=== PATIENT | male | born 1985 ===

== ENCOUNTER 2016-08-18 19:56 | Inpatient (IN) | payer MEDICAID, OTHER ==
[2016-08-18 19:56] VITALS: BMI 25.8
--- NOTE | 2016-08-18 21:03 | ED PDOC ---
HPI: Psych/Substance Abuse Time Seen by Provider: 08/18/16 20:32 Chief Complaint (Nursing): Psychiatric Evaluation Chief Complaint (Provider): crisis eval History Per: Patient History/Exam Limitations: no limitations Onset/Duration Of Symptoms: Days Current Symptoms Are (Timing): Still Present Additional History Per: Patient Additional Complaint(s): 31 y/o male history of bipolar presents with suicidal ideations. Patient states he got in to argument with friend, he states he then tried multiple times to kill himself. He notes trying suffocating himself, taking 6 Xanax pills at 17:00, injecting heroin, and laying in front of the street all throughout the day. Patient admits to being noncompliant with psych medications. Patient denies homicidal ideations, hallucinations, alcohol use, acute medical complaints. Past Medical History Reviewed: Historical Data, Nursing Documentation, Vital Signs Vital Signs: Last Vital Signs Temp 97.6 F 08/18/16 20:05 Pulse 88 08/18/16 20:05 Resp 18 08/18/16 20:05 BP 142/96 H 08/18/16 20:05 Pulse Ox 99 08/18/16 20:05 - Medical History PMH: Anxiety, Depression, HTN, Hypercholesterolemia Denies: Diabetes, Hepatitis, HIV, Chronic Kidney Disease, Seizures, Sexually Transmitted Disease - Surgical History Surgical History: No Surg Hx - Family History Family History: States: Unknown Family Hx - Living Arrangements Living Arrangements: Alone - Social History Drugs: Opiates, Prescription medications - Immunization History Hx Tetanus Toxoid Vaccination: No Hx Influenza Vaccination: No Hx Pneumococcal Vaccination: No - Home Medications Home Medications: Ambulatory Orders Medication Instructions Recorded Aspirin [Ecotrin] 81 mg PO DAILY 05/30/16 Atorvastatin [Lipitor] 20 mg PO DAILY 05/30/16 Cholecalciferol (Vitamin D3) 1,000 unit PO DAILY 05/30/16 [Vitamin D3] Metoprolol Tartrate [Lopressor] 25 mg PO BID 05/30/16 PARoxetine [Paxil] 20 mg PO DAILY 05/30/16 busPIRone [Buspar] 7.5 mg PO BID 05/30/16 Aspirin [Ecotrin] 81 mg PO DAILY #30 tabec 06/12/16 Escitalopram [Lexapro] 20 mg PO DAILY #30 tab 06/12/16 Gabapentin [Neurontin] 400 mg PO TID #90 cap 06/12/16 Metoprolol Tartrate [Lopressor] 25 mg PO BID #60 tab 06/12/16 QUEtiapine [Seroquel] 100 mg PO DAILY #30 tab 06/12/16 QUEtiapine [Seroquel] 300 mg PO HS #30 tab 06/12/16 Rosuvastatin Calcium [Crestor] 10 mg PO HS #30 tab 06/12/16 traZODone [Desyrel] 100 mg PO HS #30 tab 06/12/16 Aspirin [Ecotrin] 81 mg PO DAILY #30 tabec 08/11/16 Divalproex [Depakote DR] 500 mg PO BID #60 tcp 08/11/16 Ergocalciferol [Drisdol 50,000 1 cap PO QWK #4 cap 08/11/16 Intl Units Cap] Gabapentin [Neurontin] 300 mg PO BID #60 cap 08/11/16 Metoprolol Tartrate [Lopressor] 25 mg PO BID #60 tab 08/11/16 PARoxetine [Paxil] 20 mg PO QAM #30 tab 08/11/16 QUEtiapine [SEROquel] 200 mg PO HS #30 tab 08/11/16 - Allergies Allergies/Adverse Reactions: Allergies Allergy/AdvReac Type Severity Reaction Status Date / Time No Known Allergies Allergy Verified 08/04/16 14:30 Review of Systems ROS Statement: Except As Marked, All Systems Reviewed And Found Negative Psych: Positive for: Depression, Suicidal ideation Physical Exam - Reviewed Nursing Documentation Reviewed: Yes Vital Signs Reviewed: Yes - Physical Exam Appears: Positive for: Well, Non-toxic, Uncomfortable (crying) Head Exam: Positive for: ATRAUMATIC, NORMAL INSPECTION, NORMOCEPHALIC Skin: Positive for: Normal Color Eye Exam: Positive for: Normal appearance ENT: Positive for: Normal ENT Inspection Cardiovascular/Chest: Positive for: Regular Rate, Rhythm Respiratory: Positive for: Normal Breath Sounds Gastrointestinal/Abdominal: Positive for: Normal Exam Back: Positive for: Normal Inspection Extremity: Positive for: Normal ROM, Other (track pittman b/l antecubial fossa) Neurologic/Psych: Positive for: Alert, Oriented - Laboratory Results Result Diagrams: 08/18/16 21:35 08/18/16 21:35 - ECG ECG: Positive for: Viewed By Me (reviewed by ED attending) ECG Rhythm: Positive for: Sinus Rhythm O2 Sat by Pulse Oximetry: 99 - Progress ED Course And Treament: labs, urine, ekg, 1:1, crisis eval Poison control contacted by RN; recommends supportive care 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 Ortiz Posion control follow up call made by RN; poison recommends no further intervention at this time. Patient medically stable for psych admission. Disposition - Clinical Impression Clinical Impression: Depression - Patient ED Disposition Is Patient to be Admitted: Yes - Disposition Disposition Time: 03:51 Condition: STABLE
[2016-08-18 22:06] LABS: BASO # 0.1 K/uL (0.0-0.2); BASO % 0.8 % (0.0-2.0); EOS # 0.3 K/uL (0.0-0.7); EOS % 4.3 % (0.0-4.0); HEMATOCRIT 40.7 % (35.0-51.0); LYMPH # 1.5 K/uL (1.0-4.3); MEAN CELL VOLUME 92.4 fl (80.0-94.0); MEAN CORPUSCULAR HEMOGLOBIN 30.6 pg (27.0-31.0); MEAN CORPUSCULAR HGB CONC 33.1 g/dL (33.0-37.0); MEAN PLATELET VOLUME 10.1 fl (7.2-11.7); MONO % 13.7 % (0.0-10.0); NEUT # 4.2 K/uL (1.8-7.0); NEUT % 59.2 % (50.0-75.0); NRBC % 0.1 % (0.0-0.0); RED CELL DISTRIBUTION WIDTH 12.9 % (11.5-14.5)
[2016-08-18 22:20] LABS: ALB/GLOB RATIO 1.4 (1.0-2.1); ALCOHOL SERUM < 10 mg/dl (0-10); ALKALINE PHOSPHATASE 68 U/L (38-126); ALT/SGPT 14 U/L (21-72); AST/SGOT 25 U/L (17-59); BILIRUBIN,TOTAL 0.5 mg/dl (0.2-1.3); BLOOD UREA NITROGEN 11 mg/dl (9-20); CALCIUM 9.7 mg/dL (8.4-10.2); CARBON DIOXIDE 29 mmol/L (22-30); CHLORIDE 99 mmol/L (98-107); GFR AFRICAN-AMERICAN > 60; GLUCOSE,RANDOM 92 mg/dL (75-110); POTASSIUM 3.9 MMOL/L (3.6-5.0); SODIUM 142 mmol/l (132-148); TOTAL PROTEIN 7.5 G/DL (6.3-8.2)
[2016-08-19 02:46] LABS: URINE BILIRUBIN NEGATIVE (NEGATIVE); URINE COLOR YELLOW (YELLOW); URINE GLUCOSE (UA) NEGATIVE (Normal); URINE KETONE TRACE mg/dL (NEGATIVE)
[2016-08-19 02:47] LABS: URINE BLOOD NEGATIVE (NEGATIVE); URINE PROTEIN NEGATIVE (NEGATIVE); URINE UROBILINOGEN 0.2 mg/dL (0.2-1.0)
[2016-08-19 02:48] LABS: RBC URINE 3 /hpf (0-3); URINE LEUKOCYTE ESTERASE NEGATIVE Leu/uL (Negative); WBC URINE 1 /hpf (0-5)
[2016-08-19] MEDS ORDERED: Alum-Mag Hydrox-Simethicone Susp (30 mL) PO PRN (06:34)
[2016-08-19] MEDS ORDERED: Magnesium Hydroxide Susp 30 ml UD PO PRN (06:34)
[2016-08-19] MEDS ORDERED: DiphenhydrAMINE 50 mg/ml Inj IM PRN (06:34)
[2016-08-19 07:17] LABS: T4 7.86 ug/dl (5.5-11.0)
[2016-08-19 07:31] LABS: THYROID STIMULATING HORMONE 1.06 mIU/ML (0.46-4.68)
[2016-08-19] MEDS: Multivitamin With Minerals Tab PO SCH (10:00)
--- NOTE | 2016-08-19 10:30 | PCM.PSYCH ---
Initial Psychiatric Evaluation - Initial Psychiatric Evaluation Type of Admission: Voluntary Legal Status: Capacity Chief Complaint (in patient's own words): i feel terrible Patient's Reaction to Hospitalization: cooperative History of Present Illness and Precipitating Events: 31 yo male, history of 2 recent admissions to [facility] detox. he apparently was laying in the middle of the road with a bag over his head and claiming he wanted to . he states he has been using 20-30 bags of heroin iv daily. he states he has cramping, diarrhea, body aches, etc. he denies wanting to kill himself now. he is nodding off sleeping while stating he feels uncomfortable. by review of chart pt was at [facility] from 05/30/16 to 06/12/16- he was detoxed with methadone and placed on seroquel, and neurontin. the dc summary indicates pt was sent to [facility] for rehab. from 08/06-08/11 he was also in [facility]. he was placed on depakote and paxil and apparently did well and was discharged. pt apparently in homeless. from chart he has a daughter who lives with the mother in [place]. per chart he is from [place], [place]. Current Medications: Active Medications Generic Name Dose Route Start Last Admin Trade Name Freq PRN Reason Stop Dose Admin Acetaminophen 650 mg 08/19/16 06:34 Tylenol 325mg Tab PO Q4 PRN pain level 1 to 7 Al Hydrox/Mg Hydrox/Simethicone 30 ml 08/19/16 06:34 Maalox Plus 30 Ml PO Q4 PRN Dyspepsia Aspirin 81 mg 08/20/16 09:00 Ecotrin PO DAILY GET Clonidine HCl 0.1 mg 08/19/16 09:00 08/19/16 08:53 Catapres PO 0.1 mg Q8@0100,0900,1700 GET Administration Cyclobenzaprine HCl 10 mg 08/19/16 10:09 Flexeril PO TID PRN Muscle spasm Diphenhydramine HCl 50 mg 08/19/16 06:34 Benadryl PO Q6 PRN Extrapyramidal Symptoms Diphenhydramine HCl 50 mg 08/19/16 06:34 Benadryl IM Q6 PRN Extrapyramidal S/S Unable PO Diphenhydramine HCl 50 mg 08/19/16 06:37 Benadryl PO HS PRN Sleep Divalproex Sodium 500 mg 08/19/16 17:00 Depiveth Quispe(*Bid*) PO BID GET Haloperidol 5 mg 08/19/16 06:34 Haldol PO Q4 PRN Agitation Haloperidol Lactate 5 mg 08/19/16 06:34 Haldol IM Q4 PRN Agitation, Unable to Take PO Ibuprofen 800 mg 08/19/16 06:39 Motrin Tab PO Q8 PRN pain level 8 to 10 Loperamide HCl 2 mg 08/19/16 10:10 Imodium PO QID PRN Loose stools Lorazepam 2 mg 08/19/16 06:34 08/19/16 08:53 Ativan PO 2 mg Q4 PRN Administration Anxiety/Agitation Lorazepam 2 mg 08/19/16 06:34 Ativan IM Q4 PRN Anxiety/Agitation,Unable PO Magnesium Hydroxide 30 ml 08/19/16 06:34 Milk Of Magnesia PO HS PRN Constipation Multivitamins/Minerals 1 tab 08/19/16 09:00 Therapeutic-M Tab PO DAILY [facility] Paroxetine HCl 20 mg 08/20/16 09:00 Paxil PO QAM [facility] Past Psychiatric History - Past Psychiatric History Previous Treatment History: Inpatient Prior Professional Help: as per above History of Abuse: pt does not answer History of ETOH/Drug Use: using 20-30 bags a day of heroin. using methdone he buys from clinic patients, states he used xanax he bought from street- uds negative for benzos. denies using cocaine, but uds is positive for cocaine. states he drinks alcohol sometimes, but bal is negative. History of Family Illness: unknown Pertinent Medical Hx (Current Medical&Sleep Prob, Allergies): Allergies Allergy/AdvReac Type Severity Reaction Status Date / Time No Known Allergies Allergy Verified 08/04/16 14:30 Aspirin [Ecotrin] 81 mg PO DAILY 05/30/16 Metoprolol Tartrate [Lopressor] 25 mg PO BID 05/30/16 Divalproex [Depakote DR] 500 mg PO BID #60 tcp 08/11/16 Ergocalciferol [Drisdol 50,000 Intl Units Cap] 1 cap PO QWK #4 cap 08/11/16 PARoxetine [Paxil] 20 mg PO QAM #30 tab 08/11/16 PARoxetine [Paxil] 20 mg PO DAILY 08/19/16 apparently had MIs in the past. ? taking asa and a beta calderon? Review of Systems - Psychiatric Psychiatric: As Per HPI Mental Status Examination - Personal Presentation Personal Presentation: Looks stated age Additional comments: unkempt, won't open eyes - Affect Affect: Blunted - Motor Activity Motor Activity: Calm - Reliability in Providing Information Reliability in Providing Information: Poor, due to altered mood, Other ( somnolent) - Speech Speech: Other (vague) - Mood Mood: Depressed, Anxious - Formal Thought Process Formal Thought Process: No Impairment - Obsessions/Compulsions Obsessions: No Compulsions: No - Cognitive Functions Orientation: Person, Situation Sensorium: Drowsy Attention/Concentration: Easily distracted Abstract Thinking: [place] Estimate of Intelligence: Average Judgement: Intact, as evidence by: Insight regarding need for hospitalization Memory: Recent intact, as evidence by: Ability to recall events of the day, Remote intact, as evidenced by: Abilit to recall sig. life events - Risk Risk: Suicidal (history of recent threats. states he feel safe here. ), Withdrawal - Strength & Assets Inventory Strength & Assets Inventory: Life experience DSM 5 DX - DSM 5 DSM 5 Diagnosis: opioid dependence cocaine abuse bipolar disorder, depressed - Recommended/Plan of Treatment Treatment Recommendations and Plan of Treatment: admit to [facility] for safety and observation gather collateral information provide supportive therapy adjust medications- restart home meds. prn meds for opioid withdrawal hospitalist consult- pt s/p mi disposition planning- refer to inpt rehab Projected ELOS: 3-5 days Prognosis: fair - Smoking Cessation Smoking Cessation Initiated: No Reason for not providing: will not quantify cigarette use
[2016-08-19] MEDS: Divalproex 500 mg DR(BID formulation) PO SCH (16:13)
--- NOTE | 2016-08-19 16:53 | CP.PCM.CON ---
History of Present Illness - History of Present Illness History of Present Illness: 31 yo male with history of Heroin addiction admitted to psyche unit because of suicidal ideation. Pt also admitted going into withdrawal complaining of body aches, abdominal cramps and diarrhea. Review of Systems - Review of Systems All systems: reviewed and no additional remarkable complaints except (aside from those mentioned above, 12 point system review were negative by me) Past Patient History - Past Social History Drugs: Opiates, Prescription medications - CARDIAC Hx Cardiac Disorders: (HTN) - PULMONARY Hx Tuberculosis: No - NEUROLOGICAL Hx Seizures: No - HEENT Hx HEENT Problems: No - RENAL Hx Chronic Kidney Disease: No - ENDOCRINE/METABOLIC Hx Endocrine Disorders: No - HEMATOLOGICAL/ONCOLOGICAL Hx Human Immunodeficiency Virus (HIV): No - INTEGUMENTARY Hx Dermatological Problems: No - MUSCULOSKELETAL/RHEUMATOLOGICAL Hx Musculoskeletal Disorders: No - GASTROINTESTINAL Hx Gastrointestinal Disorders: No - GENITOURINARY/GYNECOLOGICAL Hx Sexually Transmitted Disorders: No - PSYCHIATRIC Hx Anxiety: Yes Hx Depression: Yes - SURGICAL HISTORY Hx Surgeries: No - ANESTHESIA Hx Anesthesia: No Meds Allergies/Adverse Reactions: Allergies Allergy/AdvReac Type Severity Reaction Status Date / Time No Known Allergies Allergy Verified 08/04/16 14:30 - Medications Medications: Current Medications Acetaminophen (Tylenol 325mg Tab) 650 mg PO Q4 PRN PRN Reason: pain level 1 to 7 Al Hydrox/Mg Hydrox/Simethicone (Maalox Plus 30 Ml) 30 ml PO Q4 PRN PRN Reason: Dyspepsia Aspirin (Ecotrin) 81 mg PO DAILY [facility] Clonidine HCl (Catapres) 0.1 mg PO Q8@0100,0900,1700 [facility] Last Admin: 08/19/16 16:14 Dose: 0.1 mg Cyclobenzaprine HCl (Flexeril) 10 mg PO TID PRN PRN Reason: Muscle spasm Diphenhydramine HCl (Benadryl) 50 mg PO Q6 PRN PRN Reason: Extrapyramidal Symptoms Last Admin: 08/19/16 16:14 Dose: 50 mg Diphenhydramine HCl (Benadryl) 50 mg IM Q6 PRN PRN Reason: Extrapyramidal S/S Unable PO Diphenhydramine HCl (Benadryl) 50 mg PO HS PRN PRN Reason: Sleep Divalproex Sodium (Depakote Dr(*Bid*)) 500 mg PO BID [facility] Last Admin: 08/19/16 16:13 Dose: 500 mg Haloperidol (Haldol) 5 mg PO Q4 PRN PRN Reason: Agitation Haloperidol Lactate (Haldol) 5 mg IM Q4 PRN PRN Reason: Agitation, Unable to Take PO Ibuprofen (Motrin Tab) 800 mg PO Q8 PRN PRN Reason: pain level 8 to 10 Loperamide HCl (Imodium) 2 mg PO QID PRN PRN Reason: Loose stools Last Admin: 08/19/16 16:14 Dose: 2 mg Lorazepam (Ativan) 2 mg PO Q4 PRN PRN Reason: Anxiety/Agitation Last Admin: 08/19/16 08:53 Dose: 2 mg Lorazepam (Ativan) 2 mg IM Q4 PRN PRN Reason: Anxiety/Agitation,Unable PO Magnesium Hydroxide (Milk Of Magnesia) 30 ml PO HS PRN PRN Reason: Constipation Multivitamins/Minerals (Therapeutic-M Tab) 1 tab PO DAILY [facility] Last Admin: 08/19/16 10:00 Dose: 1 tab Paroxetine HCl (Paxil) 20 mg PO QAM [facility] Physical Exam - Constitutional Appears: Agitated - Head Exam Head Exam: ATRAUMATIC - Eye Exam Eye Exam: absent: Scleral icterus - ENT Exam ENT Exam: Mucous Membranes Moist - Neck Exam Neck exam: Negative for: Meningismus - Respiratory Exam Respiratory Exam: absent: Rhonchi, Wheezes, Respiratory Distress - Cardiovascular Exam Cardiovascular Exam: REGULAR RHYTHM, +S1, +S2 - GI/Abdominal Exam GI & Abdominal Exam: Soft. absent: Tenderness - Rectal Exam Rectal Exam: Deferred - Neurological Exam Neurological exam: Alert, Oriented x3 - Psychiatric Exam Psychiatric exam: Agitated - Skin Skin Exam: Dry, Intact Results - Vital Signs Recent Vital Signs: Last Vital Signs Temp 97.7 F 08/19/16 09:00 Pulse 106 H 08/19/16 16:14 Resp 18 08/19/16 09:00 BP 114/73 08/19/16 16:14 Pulse Ox 100 08/19/16 06:15 - Labs Result Diagrams: 08/18/16 21:35 08/18/16 21:35 Labs: Laboratory Results - last 24 hr 08/19/16 08/19/16 06:52 07:00 Hemoglobin A1c 5.7 Triglycerides 60 Cholesterol 135 LDL Cholesterol Direct 74 HDL Cholesterol 41 Thyroxine (T4) 7.86 TSH 3rd Generation 1.06 Assessment & Plan (1) Suicidal ideation Status: Acute Comment: psyche is managing (2) Heroin withdrawal Status: Acute Comment: psyche is managing
--- NOTE | 2016-08-19 20:22 | CARD ---
APPROVED REPORT EKG Measurement Heart [id number] <Conclusion> Normal sinus rhythm Early repolarization Normal ECG
[2016-08-20] MEDS: Divalproex 500 mg DR(BID formulation) PO SCH ×2 (08:43→16:44)
[2016-08-20] MEDS: Multivitamin With Minerals Tab PO SCH (08:43)
[2016-08-20 16:43] VITALS: O2SAT 99
--- NOTE | 2016-08-20 20:52 | PCM.PSYCH ---
Initial Psychiatric Evaluation - Initial Psychiatric Evaluation Type of Admission: Voluntary Chief Complaint (in patient's own words): is withdrawing from heroin was having thoughts to harmself Patient's Reaction to Hospitalization: verbally agreeable History of Present Illness and Precipitating Events: reports has using both iv and intranasal heroin, as much as 20 bags per day, reports also was reportedly wanting to harm self was placing plastic bag over head, has been previously seen in [facility]-was reportedly treated with suboxone, was discharged, had been following up at [facility], stopped following up, stopped taking medications which included seroquel and and neurontin. reports long standing hx of substance use and varying attempts at rehaps. Current Medications: Active Medications Generic Name Dose Route Start Last Admin Trade Name Freq PRN Reason Stop Dose Admin Acetaminophen 650 mg 08/19/16 06:34 Tylenol 325mg Tab PO Q4 PRN pain level 1 to 7 Al Hydrox/Mg Hydrox/Simethicone 30 ml 08/19/16 06:34 Maalox Plus 30 Ml PO Q4 PRN Dyspepsia Aspirin 81 mg 08/20/16 09:00 08/20/16 08:45 Ecotrin PO 81 mg DAILY GET Administration Clonidine HCl 0.1 mg 08/19/16 09:00 08/20/16 16:50 Catapres PO 0.1 mg Q8@0100,0900,1700 GET Administration Cyclobenzaprine HCl 10 mg 08/19/16 10:09 Flexeril PO TID PRN Muscle spasm Diphenhydramine HCl 50 mg 08/19/16 06:34 08/19/16 16:14 Benadryl PO 50 mg Q6 PRN Administration Extrapyramidal Symptoms Diphenhydramine HCl 50 mg 08/19/16 06:34 Benadryl IM Q6 PRN Extrapyramidal S/S Unable PO Diphenhydramine HCl 50 mg 08/19/16 06:37 Benadryl PO HS PRN Sleep Divalproex Sodium 500 mg 08/19/16 17:00 08/20/16 16:44 Julián Quispe(*Bid*) PO 500 mg BID GET Administration Haloperidol 5 mg 08/19/16 06:34 Haldol PO Q4 PRN Agitation Haloperidol Lactate 5 mg 08/19/16 06:34 Haldol IM Q4 PRN Agitation, Unable to Take PO Ibuprofen 800 mg 08/19/16 06:39 Motrin Tab PO Q8 PRN pain level 8 to 10 Loperamide HCl 2 mg 08/19/16 10:10 08/19/16 16:14 Imodium PO 2 mg QID PRN Administration Loose stools Lorazepam 2 mg 08/19/16 06:34 08/20/16 16:46 Ativan PO 2 mg Q4 PRN Administration Anxiety/Agitation Lorazepam 2 mg 08/19/16 06:34 Ativan IM Q4 PRN Anxiety/Agitation,Unable PO Magnesium Hydroxide 30 ml 08/19/16 06:34 Milk Of Magnesia PO HS PRN Constipation Multivitamins/Minerals 1 tab 08/19/16 09:00 08/20/16 08:43 Therapeutic-M Tab PO 1 tab DAILY GET Administration Paroxetine HCl 20 mg 08/20/16 09:00 08/20/16 08:45 Paxil PO 20 mg QAM GET Administration Quetiapine Fumarate 100 mg 08/20/16 22:00 Seroquel PO HS GET Past Psychiatric History - Past Psychiatric History Previous Treatment History: Inpatient Prior Professional Help: as per above Prior Psychiatric Treatment: [facility] inpt and outpt Duration: varied Nature of Treatment: inpt psych and detox as well as outpt and psych History of Abuse: defers History of ETOH/Drug Use: long standing use of heroin both intranasal and iv-reports using [employer] Pertinent Medical Hx (Current Medical&Sleep Prob, Allergies): Allergies Allergy/AdvReac Type Severity Reaction Status Date / Time No Known Allergies Allergy Verified 08/04/16 14:30 Aspirin [Ecotrin] 81 mg PO DAILY 05/30/16 Metoprolol Tartrate [Lopressor] 25 mg PO BID 05/30/16 Divalproex [Depakote DR] 500 mg PO BID #60 tcp 08/11/16 Ergocalciferol [Drisdol 50,000 Intl Units Cap] 1 cap PO QWK #4 cap 08/11/16 PARoxetine [Paxil] 20 mg PO QAM #30 tab 08/11/16 PARoxetine [Paxil] 20 mg PO DAILY 08/19/16 Review of Systems - Constitutional Constitutional: Chills - Psychiatric Psychiatric: Abnormal Sleep Pattern, Anxiety, Difficulty Concentrating, Irritability, Suicidal Ideation Mental Status Examination - Personal Presentation Personal Presentation: Looks stated age - Affect Affect: Constricted - Motor Activity Motor Activity: Calm - Reliability in Providing Information Reliability in Providing Information: Fair - Speech Speech: Organized - Mood Mood: Depressed - Formal Thought Process Formal Thought Process: No Impairment - Cognitive Functions Orientation: Person, Place, Situation, Time Sensorium: Alert Attention/Concentration: Attentive Judgement: Imparied, as evidence by: Other Memory: Remote impaired as evidenced by: Other - Risk Risk: Suicidal, Withdrawal - Strength & Assets Inventory Strength & Assets Inventory: Cooperative - Limitations Limitations: Other (homeless, previous relapses) DSM 5 DX - DSM 5 DSM 5 Diagnosis: Bipolar Disorder Most REcent Episode Unspecified Substance Dependence: Heroin both IV and Intravenous - Recommended/Plan of Treatment Treatment Recommendations and Plan of Treatment: inpt admission per attending md vital signs and clinical observation per protocol and per clinical status start seroquel 100mg po hs valproic acid 500mg po bid obtain valproic acid in 72 hours with lfts continue paxil 20mg as per order get up slowly falls precautions discharge planning in progress Projected ELOS: 5-7 days Prognosis: guarded Discharge Plan and Discharge Criteria: stabilization of mood free of reported signs and symptoms of withdrawal safety - Smoking Cessation Smoking Cessation Initiated: No Reason for not providing: defers
[2016-08-21] MEDS: Divalproex 500 mg DR(BID formulation) PO SCH ×2 (09:09→17:03)
[2016-08-21] MEDS: Multivitamin With Minerals Tab PO SCH (09:09)
--- NOTE | 2016-08-21 16:40 | PCM.PYCHPN ---
Psychiatric Progress Note - Psychiatric Progress Note Patient seen today, length of contact: chart reviewed case discussed with team Patient Chief Complaint: seen in room, reports night was some more restful, received seroquel 100mg po once last night, denies side effects. reports withdrawal s/s are lessening, reports mood has been fair, reports upset stomach, some muscle and joint pain, reports appetite is good no nausea, expresses desire for rehab. Problems Identified/Issues Discussed: changes in mood, depression, context of use of iv heroin and intranasal heroin as mush as 20 bags reported was feeling stressed and wanted to rest, did not want to . is estranged from his only child, only child lives in [place] with mother of child. reports has been in rehabs and detox-has relapsed when presenting to similar circumstances. Medical Problems: per chart Diagnostic Results: per psychiatry per medicine per nursing per social work per recreational therapy DSM 5 Symptoms Update: alteration in mood alteration in coping alteration in domicile estrangement from family Medication Change: Yes (increase seroquel to 200mg po hs, decrease valproic acid to 125mg po bid ) Medical Record Reviewed: Yes Mental Status Examination - Cognitive Function Orientation: Person, Place, Situation, Time Attention: WNL Concentration: WNL Association: WNL Fund of Knowledge: WN Decription of patient's judgement and insights: impaired - Mood Mood: Depressed - Affect Affect: Constricted - Speech Speech: Soft - Formal Thought Process Formal Thought Process: No Impairment - Homicidal Ideation Homicidal Ideation: No Goal/Treatment Plan - Goal/Treatment Plan Need for Continued Stay: Remain at risks for inpatient hospitalization, Severe depression anxiety, Failed transitioning Progress Toward Problem(s) and Goals/Treatment Plan: inpt admission per attending md vital signs and clinical observation per protocol and per clinical status increase seroquel to 200mg po hs valproic acid 125mg po bid x 1 day then valproic acid 125mg po x 1 then d/c pt will be maintained on gabapentin 300mg po tid(reports has maintained seizure free and helps with leg cramping)-admits felt better with gabapentin naprosyn ec 375mg po bid prn for pain stop ibuprofin obtain valproic acid with lfts as previously ordered continue paxil 20mg as per order get up slowly falls precautions discharge planning in progress Estimated Date of D/C: 08/25/16 - Smoking Cessation Smoking Cessation Initiated: No Reason for not providing: deferred
[2016-08-21] MEDS ORDERED: Divalproex 125 mg DR (BID formulation) PO SCH (17:15)
[2016-08-22] MEDS: Divalproex 125 mg DR (BID formulation) PO SCH ×2 (09:47→16:50)
[2016-08-22] MEDS: Multivitamin With Minerals Tab PO SCH (09:48)
--- NOTE | 2016-08-22 19:12 | PCM.PYCHPN ---
Psychiatric Progress Note - Psychiatric Progress Note Patient seen today, length of contact: chart reviewed case discussed with team Patient Chief Complaint: seen in room, reports night was some more restful, received seroquel 100mg po once last night, denies side effects. reports withdrawal s/s are lessening, reports mood has been fair, reports upset stomach, some muscle and joint pain, reports appetite is good no nausea, expresses desire for rehab.requests to speak with father via phone related arranging aftercare. Problems Identified/Issues Discussed: changes in mood, depression, context of use of iv heroin and intranasal heroin as mush as 20 bags reported was feeling stressed and wanted to rest, did not want to . is estranged from his only child, only child lives in [place] with mother of child. reports has been in rehabs and detox-has relapsed when presenting to similar circumstances. Medical Problems: per chart Diagnostic Results: per psychiatry per medicine per nursing per social work per recreational therapy Medication Change: Yes (increase seroquel to 200mg po hs, stop valproic acid ) Medical Record Reviewed: Yes Mental Status Examination - Cognitive Function Orientation: Person, Place, Situation, Time Attention: WNL Concentration: WNL Association: [facility] Fund of Knowledge: [facility] Decription of patient's judgement and insights: impaired - Mood Mood: Depressed - Affect Affect: Constricted - Speech Speech: Soft - Formal Thought Process Formal Thought Process: No Impairment - Homicidal Ideation Homicidal Ideation: No Goal/Treatment Plan - Goal/Treatment Plan Need for Continued Stay: Remain at risks for inpatient hospitalization, Severe depression anxiety, Failed transitioning Progress Toward Problem(s) and Goals/Treatment Plan: inpt milieu vital signs and clinical observation per protocol and per clinical status increase seroquel to 200mg po hs discontinue depakote (has been weaned)- pt will be maintained on gabapentin 300mg po tid(reports has maintained seizure free and helps with leg cramping)-admits felt better with gabapentin naprosyn ec 375mg po bid prn for pain continue paxil 20mg as per order get up slowly falls precautions discharge planning in progress Estimated Date of D/C: 08/25/16 - Smoking Cessation Smoking Cessation Initiated: No Reason for not providing: pt defers
[2016-08-23 06:58] LABS: ALB/GLOB RATIO 1.2 (1.0-2.1); BILIRUBIN,TOTAL 0.4 mg/dl (0.2-1.3); TOTAL PROTEIN 7.3 G/DL (6.3-8.2)
--- NOTE | 2016-08-23 08:42 | PCM.PYCHDC ---
Mental Status Examination - Mental Status Examination Orientation: Person, Place, Situation, Time Memory: Intact Mood: Neutral Affect: Broad Speech: Appropriate Attention: WNL Concentration: WNL Association: WNL Fund of Knowledge: WNL Formal Thought Process: No Impairment Description of patient's judgement and insight: Fair I/J Psychotic Thoughts and Behaviors: No AH/VH/psychosis Suicidal Ideation: No Current Homicidal Ideation?: No Discharge Summary - Discharge Note Reason for Hospitalization: 31 yo male, history of 2 recent admissions to [facility] detox. he apparently was laying in the middle of the road with a bag over his head and claiming he wanted to . he states he has been using 20-30 bags of heroin iv daily. he states he has cramping, diarrhea, body aches, etc. he denies wanting to kill himself now. he is nodding off sleeping while stating he feels uncomfortable. by review of chart pt was at [facility] from 05/30/16 to 06/12/16- he was detoxed with methadone and placed on seroquel, and neurontin. the dc summary indicates pt was sent to [facility] for rehab. from 08/06-08/11 he was also in [facility]. he was placed on depakote and paxil and apparently did well and was discharged. pt apparently in homeless. from chart he has a daughter who lives with the mother in [place]. per chart he is from [place], [place]. Psychiatric History (includes Medical, Family, Personal Hx): inpt psych and detox as well as outpt and psych Laboratory Data: Abnormal Lab Results 08/23/16 06:43 Total Bilirubin 0.4 Direct Bilirubin 0.1 AST 24 ALT 22 Alkaline Phosphatase 72 Total Protein 7.3 Albumin 4.0 Globulin 3.4 Albumin/Globulin Ratio 1.2 Consultations:: List each consultation separately and include: 1. Reason for request. 2. Findings. 3. Follow-up Consultations: Medicine consult Summary of Hospital Course include:: 1. Description of specific treatment plan utilized for patients during their course of treatmen. 2. Summarize the time- course for resolution of acute symptoms and/or regressed behaviors. 3. Describe issues identified and worked on during hospitalization. 4. Describe medication utilized. 5. Describe medical problems identified and treated. 6. Reassessment of suicide risk Summary of Hospital Course: Patient admitted to the hospital. He was detoxed off Heroin and cocaine. He was stabilized back on Paxil 20 mg PO Daily and Seroquel 200 mg PO HS. He no longer reports suicidal ideation and states that his depression and previous suicidal ideation was largely due to his chronic substance abuse. Supportive and motivational therapy provided. Patient counseled on the importance of substance abuse cessation. - Final Diagnosis (DSM 5) Condition upon Discharge: STABLE DSM 5: Bipolar disorder, depressive type; Opioid use disorder, Cocaine use disorder Disposition: HOME/ ROUTINE Follow-up Treatment Plan: 31 yo male w/ Bipolar disorder, depressive type; Opioid use disorder, Cocaine use disorder, presented with suicidal ideation, now no longer reporting suicidal ideation or depression after being detoxed. He is psychiatrically stable for discharge at this time. -Discharge w/ outpatient follow-up -Continue Paxil 20 mg PO Daily and Seroquel 200 mg PO HS Prescriptions/Medication Reconciliation: PARoxetine [Paxil] 20 mg PO QAM #30 tab QUEtiapine [SEROquel] 200 mg PO HS #30 tab - Smoking Cessation Smoking Cessation Medication prescribed: No Reason for not providing: Not indicated - Antipsychotic Medications Pt discharged on 2 or more routine antipsychotic medications: No
[2016-08-23] MEDS ORDERED: Divalproex 125 mg DR (BID formulation) PO ONE (09:00)
[2016-08-23] MEDS: Multivitamin With Minerals Tab PO SCH (09:20)
[2016-08-23 09:43] VITALS: BP 105/55; PULSE 76; RESP 18; TEMP 97.7
== END 2016-08-23 12:25 | disposition home or self-care (01) | DRG 430 ==
LOC: H.ER 19:56 → H.ERHOLD 08-19 03:15 → H.PSYCH 08-19 06:12
PROVIDERS: ADMIT Psychiatry & Neurology Psychiatry; ATTEND Psychiatry & Neurology Psychiatry
PROC: GZ51ZZZ Individual Psychotherapy, Behavioral (ICD-10-PCS; 2016-08-19)
PROC: GZHZZZZ Group Psychotherapy (ICD-10-PCS; principal; 2016-08-20)
DX: F31.9 Bipolar disorder, unspecified (principal); R45.851 Suicidal ideations; F11.20 Opioid dependence, uncomplicated; F14.10 Cocaine abuse, uncomplicated; Z91.14 Patient's other noncompliance with medication regimen; I10 Essential (primary) hypertension; Z59.0 Homelessness; Z63.8 Other specified problems related to primary support group; E78.00 Pure hypercholesterolemia, unspecified; F17.210 Nicotine dependence, cigarettes, uncomplicated

== ENCOUNTER 2016-12-02 17:44 | Inpatient (IN) | payer MEDICAID, OTHER ==
[2016-12-02 17:44] VITALS: BMI 25.8
--- NOTE | 2016-12-02 18:11 | ED PDOC ---
Psych Transfer Clearance - Clearance Statement Clearance Statement: Reviewed vital signs, lab results and transfer papers. Patient clinically stable for psychiatric admission.
[2016-12-02] MEDS ORDERED: DiphenhydrAMINE 50 mg/ml Inj IM PRN (18:45)
[2016-12-02] MEDS ORDERED: Magnesium Hydroxide Susp 30 ml UD PO PRN (18:45)
[2016-12-02] MEDS ORDERED: Alum-Mag Hydrox-Simethicone Susp (30 mL) PO PRN (18:45)
[2016-12-03 06:37] VITALS: O2SAT 100
[2016-12-03] MEDS: Multivitamin With Minerals Tab PO SCH (09:29)
--- NOTE | 2016-12-03 11:48 | PCM.PSYCH ---
Initial Psychiatric Evaluation - Initial Psychiatric Evaluation Type of Admission: Voluntary Legal Status: Capacity Chief Complaint (in patient's own words): i need clonidine Patient's Reaction to Hospitalization: irritated History of Present Illness and Precipitating Events: 31 yo male, history of depression, opioid dependence. multiple admissions to [facility] since may this year. he again, presented at [facility] seeking admission with suicidal thoughts in context of opioid dependence. apparently there were concerns that pt's gf may have been admitted to [facility] and pt was sent to [place]. today he is c/o withdrawal symptoms and state he last used heroin 2 days ago. he is feeling restless, anxious, cant sleep, has been feeling nauseated and is having stomach and muscle cramping, chills, etc. he is preoccupied currently with getting medications to help with withdrawal. he reports he has depression and anxiety also. he states he follows up with a program in [place]. Current Medications: Active Medications Generic Name Dose Route Start Last Admin Trade Name Freq PRN Reason Stop Dose Admin Acetaminophen 650 mg 12/02/16 18:45 Tylenol 325mg Tab PO Q4 PRN Pain, moderate (4-7) Al Hydrox/Mg Hydrox/Simethicone 30 ml 12/02/16 18:45 Maalox Plus 30 Ml PO Q4 PRN Dyspepsia Buspirone HCl 10 mg 12/03/16 17:00 Buspar PO BID GET Buspirone HCl 5 mg 12/03/16 17:00 Buspar PO BID [facility] Cholecalciferol 1,000 iu 12/04/16 09:00 Vitamin D PO DAILY [facility] Clonidine HCl 0.1 mg 12/02/16 22:00 12/03/16 08:42 Catapres PO 12/05/16 09:00 Not Given TID GET Cyclobenzaprine HCl 10 mg 12/03/16 09:43 Flexeril PO TID PRN Muscle spasm Diphenhydramine HCl 50 mg 12/02/16 18:45 Benadryl IM Q6 PRN Extrapyramidal S/S Unable PO Diphenhydramine HCl 50 mg 12/02/16 18:45 Benadryl PO Q6 PRN Extrapyramidal Symptoms Escitalopram Oxalate 20 mg 12/04/16 09:00 Lexapro PO DAILY [facility] Gabapentin 600 mg 12/03/16 13:00 Neurontin PO TID GET Haloperidol 5 mg 12/02/16 18:45 Haldol PO Q4 PRN Agitation Haloperidol Lactate 5 mg 12/02/16 18:45 Haldol IM Q4 PRN Agitation, Unable to Take PO Ibuprofen 800 mg 12/02/16 22:00 Motrin Tab PO Q6 PRN PAIN LEVEL 7-10 Levetiracetam 500 mg 12/03/16 09:45 12/03/16 10:35 Keppra PO 500 mg BID GET Administration Loperamide HCl 2 mg 12/02/16 18:49 Imodium PO QID PRN Diarrhea Lorazepam 2 mg 12/02/16 18:45 Ativan IM Q4 PRN Anxiety/Agitation,Unable PO Lorazepam 2 mg 12/02/16 18:45 Ativan PO Q4 PRN Anxiety/Agitation Magnesium Hydroxide 30 ml 12/02/16 18:45 Milk Of Magnesia PO HS PRN Constipation Multivitamins/Minerals 1 tab 12/03/16 09:00 12/03/16 09:29 Therapeutic-M Tab PO 1 tab DAILY GET Administration Ondansetron HCl 4 mg 12/03/16 09:43 Zofran Tab PO Q4 PRN Nausea/Vomiting Quetiapine Fumarate 100 mg 12/03/16 17:00 Seroquel PO BIDHS GET Temazepam 30 mg 12/02/16 18:52 Restoril PO HS PRN Insomnia Past Psychiatric History - Past Psychiatric History Previous Treatment History: Inpatient Prior Professional Help: 5 admissions since may 2016 History of Abuse: denies History of ETOH/Drug Use: uses 20 bags of heroin iv/snorting daily for last 5 years, history of cocaine use. smokes cigarettes. History of Family Illness: denies Pertinent Medical Hx (Current Medical&Sleep Prob, Allergies): Allergies Allergy/AdvReac Type Severity Reaction Status Date / Time No Known Allergies Allergy Verified 12/01/16 23:18 Aspirin [Ecotrin] 81 mg PO DAILY 05/30/16 Multimineral/Multivitamin [Therapeutic-M Tab] 1 tab PO DAILY tab 08/23/16 PARoxetine [Paxil] 20 mg PO QAM #30 tab 08/23/16 Atorvastatin Calcium 10 mg PO HS 09/15/16 Buspirone HCl [Buspirone HCl] 7.5 mg PO BID 09/15/16 Escitalopram [Lexapro] 20 mg PO DAILY 09/15/16 Metoprolol Tartrate [Lopressor] 25 mg PO BID 09/15/16 Nitroglycerin 0.4 mg SL PRN 09/15/16 QUEtiapine [SEROquel] 300 mg PO HS 09/15/16 Vitamin D3 1,000 units PO DAILY 09/15/16 traZODone [Desyrel] 100 mg PO HS 09/15/16 Divalproex [Depakote DR] 500 mg PO BID 14 Days 09/22/16 Gabapentin [Neurontin] 300 mg PO TID 14 Days 09/22/16 QUEtiapine [Seroquel] 300 mg PO HS 14 Days 09/22/16 Review of Systems - Psychiatric Psychiatric: As Per HPI Mental Status Examination - Personal Presentation Personal Presentation: Looks stated age - Affect Affect: Constricted, Depressed - Motor Activity Motor Activity: Calm - Reliability in Providing Information Reliability in Providing Information: Poor, due to altered mood (withdrawing and irritable, short answers, evasive) - Speech Speech: Other (brief answers) - Mood Mood: Depressed, Anxious - Formal Thought Process Formal Thought Process: No Impairment - Obsessions/Compulsions Obsessions: No Compulsions: No - Cognitive Functions Orientation: Person, Place, Situation, Time Sensorium: Alert Attention/Concentration: Attentive Abstract Thinking: [place] Estimate of Intelligence: Average Judgement: Intact, as evidence by: Insight regarding need for hospitalization Memory: Recent intact, as evidence by: Ability to recall events of the day, Remote intact, as evidenced by: Abilit to recall sig. life events - Risk Risk: Suicidal (pt reports suicidal thoughts, but feels safe here in hospital), Withdrawal, Diminished functioning - Strength & Assets Inventory Strength & Assets Inventory: Intelligence DSM 5 DX - DSM 5 DSM 5 Diagnosis: opioid dependence mood disorder unspecified - Recommended/Plan of Treatment Treatment Recommendations and Plan of Treatment: admit to 3 for safety and observation gather collateral information provide supportive therapy adjust medications- restart home meds hospitalist consult disposition planning- encourage referral to in rehab Projected ELOS: 5-7 days Prognosis: fair
--- NOTE | 2016-12-03 17:16 | CP.PCM.CON ---
History of Present Illness - History of Present Illness History of Present Illness: Pt is a 31yo M with a PMH of asthma, HTN, [place] (once in 2007 and again in 2010 treated at [facility] in [place]) as well as HTN, presented to the hospital for treatment of his heroin use. He has a past psych hx of bipolar disorder, depression, suicidal thoughts, schizoaffective disorders, substance abuse (heroin). As per pt, he started using heroin in May of this year, states that he was able to quit for a short time, but relapsed last month, states that he is a daily user, and that he is currently exhibiting symptoms of withdrawal and has been for two days. Withdrawal symptoms are diarrhea, chills, cough, body aches, and nausea. He reports not being able to eat or sleep for the past two days. Patient also complained of 8/10 diffuse abdominal pain which he describes as sharp. He attributes this to withdrawal as well and denied any aggravating or alleviating factors. Also denied fever, chest pain, or palpitations. Discrepancies found in patient's story and history, such as not eating when he was observed eating on the unit, length/amt of heroin used as per collateral from unit staff, suggest he is not a reliable historian. PMH: [place] x2 (2007, 2010, tx at [facility] in [place]. PCI Performed both times), asthma, HTN, psych hx as per HPI. Allergies: None. Medications: Patient noted that he takes a medication for his blood pressure, but he could not remember what it was. Family History: Mother ([place] and Lung Cancer). Maternal Aunt [place]. Social History: Lives in [place] and works at a [employer]. Smokes ciggarettes (did not quantify), occasional EtOH as per pt (refused to quantify) , heroin use daily. Review of Systems - Constitutional Constitutional: Fatigue. absent: Fever - EENT Eyes: absent: Change in Vision Ears: absent: Abnormal Hearing Nose/Mouth/Throat: Nasal Congestion - Cardiovascular Cardiovascular: absent: Chest Pain, Palpitations - Respiratory Respiratory: Cough. absent: Dyspnea on Exertion - Gastrointestinal Gastrointestinal: Abdominal Pain, Diarrhea, Nausea. absent: Constipation, Hematochezia, Melena - Genitourinary Genitourinary: absent: Dysuria, Hematuria - Integumentary Integumentary: absent: Lesions, Rash Past Patient History - Infectious Disease Hx of Infectious Diseases: None - Past Social History Smoking Status: Light Smoker < 10 Cigarettes Daily Drugs: Opiates - CARDIAC Hx Cardiac Disorders: Yes Hx Heart Murmur: Yes Hx Hypertension: Yes - PULMONARY Hx Respiratory Disorders: Yes Hx Asthma: Yes Hx Tuberculosis: No - NEUROLOGICAL HX Cerebrovascular Accident: No Hx Seizures: No - HEENT Hx HEENT Problems: No - RENAL Hx Chronic Kidney Disease: No - ENDOCRINE/METABOLIC Hx Endocrine Disorders: No - HEMATOLOGICAL/ONCOLOGICAL Hx Blood Disorders: No Hx Cancer: No Hx Human Immunodeficiency Virus (HIV): No - INTEGUMENTARY Hx Dermatological Problems: No - MUSCULOSKELETAL/RHEUMATOLOGICAL Hx Musculoskeletal Disorders: No - GASTROINTESTINAL Hx Gastrointestinal Disorders: No - GENITOURINARY/GYNECOLOGICAL Hx Genitourinary Disorders: No Hx Sexually Transmitted Disorders: No - PSYCHIATRIC Hx Psychophysiologic Disorder: Yes Hx Substance Use: Yes (Heroin, marijuana) - SURGICAL HISTORY Hx Surgeries: No - ANESTHESIA Hx Anesthesia: No Meds Allergies/Adverse Reactions: Allergies Allergy/AdvReac Type Severity Reaction Status Date / Time No Known Allergies Allergy Verified 12/01/16 23:18 - Medications Medications: Current Medications Acetaminophen (Tylenol 325mg Tab) 650 mg PO Q4 PRN PRN Reason: Pain, moderate (4-7) Al Hydrox/Mg Hydrox/Simethicone (Maalox Plus 30 Ml) 30 ml PO Q4 PRN PRN Reason: Dyspepsia Buspirone HCl (Buspar) 10 mg PO BID [facility] Buspirone HCl (Buspar) 5 mg PO BID [facility] Cholecalciferol (Vitamin D) 1,000 iu PO DAILY [facility] Clonidine HCl (Catapres) 0.1 mg PO TID [facility] Stop: 12/05/16 09:00 Last Admin: 12/03/16 15:27 Dose: Not Given Cyclobenzaprine HCl (Flexeril) 10 mg PO TID PRN PRN Reason: Muscle spasm Last Admin: 12/03/16 15:30 Dose: 10 mg Diphenhydramine HCl (Benadryl) 50 mg IM Q6 PRN PRN Reason: Extrapyramidal S/S Unable PO Diphenhydramine HCl (Benadryl) 50 mg PO Q6 PRN PRN Reason: Extrapyramidal Symptoms Escitalopram Oxalate (Lexapro) 20 mg PO DAILY [facility] Gabapentin (Neurontin) 600 mg PO TID [facility] Last Admin: 12/03/16 13:00 Dose: 600 mg Haloperidol (Haldol) 5 mg PO Q4 PRN PRN Reason: Agitation Haloperidol Lactate (Haldol) 5 mg IM Q4 PRN PRN Reason: Agitation, Unable to Take PO Ibuprofen (Motrin Tab) 800 mg PO Q6 PRN PRN Reason: PAIN LEVEL 7-10 Levetiracetam (Keppra) 500 mg PO BID [facility] Last Admin: 12/03/16 10:35 Dose: 500 mg Loperamide HCl (Imodium) 2 mg PO QID PRN PRN Reason: Diarrhea Lorazepam (Ativan) 2 mg IM Q4 PRN PRN Reason: Anxiety/Agitation,Unable PO Lorazepam (Ativan) 2 mg PO Q4 PRN PRN Reason: Anxiety/Agitation Magnesium Hydroxide (Milk Of Magnesia) 30 ml PO HS PRN PRN Reason: Constipation Multivitamins/Minerals (Therapeutic-M Tab) 1 tab PO DAILY [facility] Last Admin: 12/03/16 09:29 Dose: 1 tab Ondansetron HCl (Zofran Tab) 4 mg PO Q4 PRN PRN Reason: Nausea/Vomiting Quetiapine [facility]ate [facility]) [facility] Temazepam (Restoril) 30 mg PO HS PRN PRN Reason: Insomnia Physical Exam - Head Exam Head Exam: ATRAUMATIC, NORMAL INSPECTION - Eye Exam Eye Exam: EOMI, Normal appearance, PERRL. absent: Conjunctival injection - ENT Exam ENT Exam: Mucous Membranes Moist - Neck Exam Neck exam: Positive for: Normal Inspection Additional comments: supple, no masses - Respiratory Exam Respiratory Exam: Clear to Auscultation Bilateral, NORMAL BREATHING PATTERN - Cardiovascular Exam Cardiovascular Exam: REGULAR RHYTHM, +S1, +S2 - GI/Abdominal Exam GI & Abdominal Exam: Normal Bowel Sounds Additional comments: minor diffuse tenderness on palpation - Extremities Exam Extremities exam: Positive for: normal capillary refill, normal inspection. Negative for: calf tenderness Results - Vital Signs Recent Vital Signs: Last Vital Signs Temp 97.8 F 12/03/16 16:42 Pulse 68 12/03/16 16:42 Resp 18 12/03/16 16:42 BP 117/59 L 12/03/16 16:42 Pulse Ox 100 12/02/16 20:00 - Labs Labs: Laboratory Results - last 24 hr 12/03/16 12/03/16 12/03/16 07:00 07:00 07:00 Hemoglobin A1c 5.5 Triglycerides 68 Cholesterol 150 LDL Cholesterol Direct 95 HDL Cholesterol 31 TSH 3rd Generation 0.11 L RPR Nonreactive Assessment & Plan - Assessment and Plan (Free Text) Assessment: Pt is a 31yo M with a PMH of MIx2 and HTN who presented to the hospital for treatment of his heroin use. The patient is currently experiencing symptoms of withdrawal and needs continued management for this condition. Plan: 1) Withdrawal -Patient appears to be withdrawing from heroin. Clonidine appears to be contributing to hypotension. Hold clonidine and consider replacement with a different medication in the protocol. Encourage fluid intake. 2) Hypertension -Currently controlled. Hold home medication of Metoprolol 25mg BID. Restart if BP is greater than 140/70. 3) Hyperlipidemia -Continue Patient on Home Medication of Atorvastatin 10mg.
[2016-12-04] MEDS: Multivitamin With Minerals Tab PO SCH (09:19)
--- NOTE | 2016-12-04 10:58 | PCM.PYCHPN ---
Psychiatric Progress Note - Psychiatric Progress Note Patient seen today, length of contact: discussed with team Patient Chief Complaint: can i go home tomorrow Problems Identified/Issues Discussed: pt seeking meds for withdrawal. he attends groups. states he does not want to stay in the hospital any longer and demands discharge tomorrow. states he is not feeling suicidal at this time. Medication Change: No Medical Record Reviewed: Yes Mental Status Examination - Cognitive Function Orientation: Person, Place, Situation, Time Memory: Intact Attention: WNL Concentration: WNL Association: WNL Fund of Knowledge: WN Decription of patient's judgement and insights: fair - Mood Mood: Depressed, Anxious - Affect Affect: Constricted, Depressed - Formal Thought Process Formal Thought Process: No Impairment - Suicidal Ideation Suicidal Ideation: No - Homicidal Ideation Homicidal Ideation: No Goal/Treatment Plan - Goal/Treatment Plan Need for Continued Stay: Remain at risks for inpatient hospitalization, Severe functional impairment Progress Toward Problem(s) and Goals/Treatment Plan: opioid dependence continue current treatment discharge tomorrow Estimated Date of D/C: 12/05/16
[2016-12-04 16:33] VITALS: RESP 18
[2016-12-05] MEDS: Multivitamin With Minerals Tab PO SCH (09:11)
[2016-12-05 09:12] VITALS: BP 114/62; PULSE 75; TEMP 97.7
--- NOTE | 2016-12-05 10:38 | PCM.PYCHDC ---
Mental Status Examination - Mental Status Examination Orientation: Person, Place, Situation, Time Memory: Intact Mood: Anxious (regarding discharge) Affect: Broad Speech: Appropriate Attention: WNL Concentration: WNL Association: WNL Fund of Knowledge: WNL Formal Thought Process: No Impairment Description of patient's judgement and insight: fair Psychotic Thoughts and Behaviors: denies a/v hallucinations Suicidal Ideation: No Current Homicidal Ideation?: No Plan: pt denies any suicidal or homicidal thoughts/plans or intent Discharge Summary - Discharge Note Reason for Hospitalization: pt admitted with depression, heroin use Psychiatric History (includes Medical, Family, Personal Hx): history of opioid dependence and mood disorder Consultations:: List each consultation separately and include: 1. Reason for request. 2. Findings. 3. Follow-up Consultations: seen by medical doctor md/medical director Summary of Hospital Course include:: 1. Description of specific treatment plan utilized for patients during their course of treatmen. 2. Summarize the time- course for resolution of acute symptoms and/or regressed behaviors. 3. Describe issues identified and worked on during hospitalization. 4. Describe medication utilized. 5. Describe medical problems identified and treated. 6. Reassessment of suicide risk Summary of Hospital Course: 31 yo male, history of depression, opioid dependence. multiple admissions to [facility] and [facility] since may this year. he again, presented at [facility] seeking admission with suicidal thoughts in context of opioid dependence. apparently there were concerns that pt's gf may have been admitted to [facility] and pt was sent to [place]. today he is c/o withdrawal symptoms and state he last used heroin 2 days ago. he is feeling restless, anxious, cant sleep, has been feeling nauseated and is having stomach and muscle cramping, chills, etc. he is preoccupied currently with getting medications to help with withdrawal. he reports he has depression and anxiety also. he states he follows up with a program in [place]. hospital course admitted to [facility] and oriented to the unit. seen by medical doctor md/medical director. seen by the treatment team. he was started on his home medications and tolerated the reintroduction of these medications. he was seeking discharge and agreeing to follow up with aftercare. at the time of discharge the patient was goal directed and future oriented and denying any suicidal or homicidal thoughts. - Final Diagnosis (DSM 5) Condition upon Discharge: GOOD DSM 5: opioid dependence bipolar disorder Disposition: HOME/ ROUTINE Follow-up Treatment Plan: follow up with aftercare as directed take medications as prescribed do not use alcohol, tobacco or other illicit substances call 911 if any suicidal or homicidal thoughts attend AA/NA meetings daily Prescriptions/Medication Reconciliation: Buspirone HCl 15 mg PO BID #30 Cholecalciferol [Vitamin D 1000 IU] 1,000 iu PO DAILY #30 tab Escitalopram [Lexapro] 20 mg PO DAILY #15 tab Gabapentin [Neurontin] 600 mg PO TID #45 tab levETIRAcetam [Keppra] 500 mg PO BID #30 tab QUEtiapine [Seroquel] 100 mg PO BIDHS #45 tab - Smoking Cessation Smoking Cessation Medication prescribed: No - Antipsychotic Medications Pt discharged on 2 or more routine antipsychotic medications: No
== END 2016-12-05 14:16 | disposition home or self-care (01) | DRG 745 ==
LOC: H.ER 17:44 → H.PSYCH 18:10
PROVIDERS: ADMIT Psychiatry & Neurology Psychiatry; ATTEND Psychiatry & Neurology Psychiatry
PROC: HZ89ZZZ Medication Management for Substance Abuse Treatment, Other Replacement Medication (ICD-10-PCS; principal; 2016-12-02)
PROC: HZ2ZZZZ Detoxification Services for Substance Abuse Treatment (ICD-10-PCS; 2016-12-02)
PROC: HZ59ZZZ Individual Psychotherapy for Substance Abuse Treatment, Supportive (ICD-10-PCS; 2016-12-02)
DX: F11.20 Opioid dependence, uncomplicated (principal); R45.851 Suicidal ideations; F41.8 Other specified anxiety disorders; F17.210 Nicotine dependence, cigarettes, uncomplicated; Z82.49 Family history of ischemic heart disease and other diseases of the circulatory system; Z80.1 Family history of malignant neoplasm of trachea, bronchus and lung; I25.2 Old myocardial infarction; J45.909 Unspecified asthma, uncomplicated; I10 Essential (primary) hypertension; F31.9 Bipolar disorder, unspecified

== ENCOUNTER 2016-12-19 21:46 | Emergency (ER) | payer MEDICAID, OTHER ==
[2016-12-19 21:46] VITALS: BMI 25.8
--- NOTE | 2016-12-19 22:16 | ED PDOC ---
HPI: Psych/Substance Abuse Time Seen by Provider: 12/19/16 22:13 Chief Complaint (Nursing): Psychiatric Evaluation Chief Complaint (Provider): juliana eval Additional Complaint(s): 31yo M in Ed for eval of depression with SI. states earlier today he consumed 10tabs of Tylenol PM stating he wanted to end it. Pt admits in past couple of weeks he has been progressively worse hearing voices telling him he is worthless , to hurt/kill himself and that he is a nuances to others in his life. denies drug use. denies visual hallucinations and denies HI. p was recently admitted to [facility] 12/02/16 Past Medical History Reviewed: Historical Data, Nursing Documentation, Vital Signs Vital Signs: Last Vital Signs Temp 98.2 F 12/19/16 22:00 Pulse 98 H 12/19/16 22:00 Resp 16 12/19/16 22:00 BP 127/68 12/19/16 22:00 Pulse Ox 96 12/19/16 22:00 - Medical History PMH: Anxiety, Asthma, Bipolar Disorder, Depression, HTN, Hypercholesterolemia Denies: Diabetes, Hepatitis, HIV, Chronic Kidney Disease, Seizures, Sexually Transmitted Disease - Family History Family History: States: Unknown Family Hx - Immunization History Hx Tetanus Toxoid Vaccination: No Hx Influenza Vaccination: No Hx Pneumococcal Vaccination: No - Home Medications Home Medications: Ambulatory Orders Medication Instructions Recorded Aspirin [Ecotrin] 81 mg PO DAILY 05/30/16 Atorvastatin Calcium 10 mg PO HS 09/15/16 Buspirone HCl 15 mg PO BID #30 12/05/16 Cholecalciferol [Vitamin D 1000 IU] 1,000 iu PO DAILY #30 tab 12/05/16 Escitalopram [Lexapro] 20 mg PO DAILY #15 tab 12/05/16 Gabapentin [Neurontin] 600 mg PO TID #45 tab 12/05/16 Multimineral/Multivitamin 1 tab PO DAILY tab 12/05/16 [Therapeutic-M Tab] QUEtiapine [Seroquel] 100 mg PO BIDHS #45 tab 12/05/16 levETIRAcetam [Keppra] 500 mg PO BID #30 tab 12/05/16 - Allergies Allergies/Adverse Reactions: Allergies Allergy/AdvReac Type Severity Reaction Status Date / Time No Known Allergies Allergy Verified 07/24/17 23:18 Review of Systems ROS Statement: Except As Marked, All Systems Reviewed And Found Negative Constitutional: Negative for: Weakness Cardiovascular: Negative for: Chest Pain, Palpitations Respiratory: Negative for: Cough, Shortness of Breath Gastrointestinal: Negative for: Nausea, Vomiting, Abdominal Pain Psych: Positive for: Suicidal ideation Physical Exam - Reviewed Nursing Documentation Reviewed: Yes Vital Signs Reviewed: Yes - Physical Exam Appears: Positive for: Well, Non-toxic, No Acute Distress Head Exam: Positive for: ATRAUMATIC, NORMAL INSPECTION, NORMOCEPHALIC Skin: Positive for: Normal Color, Warm, DRY Eye Exam: Positive for: Normal appearance, EOMI, PERRL. Negative for: Scleral icterus ENT: Positive for: Normal ENT Inspection Neck: Positive for: Normal, Painless ROM Cardiovascular/Chest: Positive for: Regular Rate, Rhythm Respiratory: Positive for: CNT, Normal Breath Sounds Gastrointestinal/Abdominal: Positive for: Normal Exam, Bowel Sounds, Soft. Negative for: Tenderness Extremity: Positive for: Normal ROM Neurologic/Psych: Positive for: Alert, Oriented, Mood/Affect (depressed) - Laboratory Results Result Diagrams: 12/19/16 23:08 12/19/16 23:08 Interpretation Of Abn Labs: elevated ALT, however previous records incidicate chronic elevated ALT's. normal AST and albumin. - ECG ECG Rhythm: Positive for: Normal QRS, Normal ST Segment, Sinus Rhythm O2 Sat by Pulse Oximetry: 96 - Progress ED Course And Treament: crisis eval, placed on1:1 cbc/cmp/pt/ptt/ASA/Tylenol/UA/drug screen and alcohol levels. @ 2215: poison control contacted agent: Shirley provide supportive repeat EKG in 4hrs Disposition - Clinical Impression Clinical Impression: Suicidal ideation - Patient ED Disposition Is Patient to be Admitted: Transfer of Care - Disposition Disposition Time: 23:57 Condition: STABLE Forms: [employer] (Danish) Patient Signed Over To: Albaro Queen Handoff Comments: crisis eval
[2016-12-19 23:13] LABS: BASO % 0.9 % (0.0-2.0); EOS # 0.1 K/uL (0.0-0.7); EOS % 2.3 % (0.0-4.0); HEMOGLOBIN 14.4 g/dL (12.0-18.0); LYMPH # 1.2 K/uL (1.0-4.3); LYMPH % 25.4 % (20.0-40.0); MEAN CELL VOLUME 91.5 fl (80.0-94.0); MEAN CORPUSCULAR HEMOGLOBIN 30.5 pg (27.0-31.0); MEAN CORPUSCULAR HGB CONC 33.4 g/dL (33.0-37.0); MEAN PLATELET VOLUME 9.7 fl (7.2-11.7); MONO % 21.8 % (0.0-10.0); NEUT # 2.3 K/uL (1.8-7.0); NEUT % 49.6 % (50.0-75.0); PLATELET COUNT 144 K/uL (130-400); RBC 4.71 Mil/uL (4.40-5.90); RED CELL DISTRIBUTION WIDTH 14.3 % (11.5-14.5); WHITE BLOOD COUNT 4.5 K/uL (4.8-10.8)
[2016-12-19 23:24] LABS: ALB/GLOB RATIO 1.4 (1.0-2.1); ALBUMIN 4.5 g/dL (3.5-5.0); ALT/SGPT 120 U/L (21-72); AST/SGOT 41 U/L (17-59); BLOOD UREA NITROGEN 11 mg/dl (9-20); CALCIUM 9.8 mg/dL (8.4-10.2); GFR AFRICAN-AMERICAN > 60; GFR NON-AFRICAN AMERICAN > 60
[2016-12-19 23:35] LABS: PROTHROMBIN TIME 12.4 Seconds (9.8-13.1)
[2016-12-19 23:36] LABS: INR 1.2 (0.9-1.2); PARTIAL THROMBOPLASTIN TIME 37.7 Seconds (25.6-37.1)
[2016-12-20 00:05] LABS: SALICYLATE < 1.0 mg/dl
[2016-12-20 00:06] LABS: ACETAMINOPHEN < 10.0 ug/ml (10.0-30.0)
[2016-12-20 00:14] LABS: BANDS 1 % (0-2); EOSINOPHIL 2 % (0-7); LYMPHOCYTE 30 % (20-50); MONOCYTE 16 % (0-10); NEUTROPHIL 47 % (42-75); REACTIVE LYMPHOCYTES 4 % (0-0); TOTAL CELLS COUNTED 100
[2016-12-20 00:15] LABS: PLATELET ESTIMATE NORMAL (NORMAL)
[2016-12-20 00:16] LABS: ANISOCYTOSIS SLIGHT
[2016-12-20 00:17] LABS: LARGE PLATELETS PRESENT; STOMATOCYTES SLIGHT
[2016-12-20 02:43] LABS: ALB/GLOB RATIO 1.4 (1.0-2.1); ALBUMIN 4.2 g/dL (3.5-5.0); BILIRUBIN,DIRECT 0.5 mg/ml (0.0-0.4)
--- NOTE | 2016-12-20 03:10 | ED PDOC ---
- Laboratory Results Result Diagrams: 12/19/16 23:08 12/19/16 23:08 Urine dip results: Negative for: Leukocyte Esterase, Blood, Nitrate, Ketones, Glucose, Bilirubin, Protein - ECG O2 Sat by Pulse Oximetry: 97 - Progress ED Course And Treament: repeat ekg at 02:13 NSR 63bpm no ectopy no acute changes: QT/QTc 426/435 Vitals wnl. Bloodwork reviewed with poison control. Patient medically cleared at 02:20am for psych eval. seen by crisis. d/w DR. Villasenor who would like patient to be under care of [facility] as patient's girlfriend is being admitted to [facility] Psych. Disposition - Clinical Impression Clinical Impression: Suicidal ideation - POA Present On Arrival: None - Disposition Disposition: Transfer of Care Disposition Time: 03:16 Condition: STABLE Forms: [facility] (French) Patient Signed Over To: Power Schultz Handoff Comments: transfer to [facility]
[2016-12-20 06:36] LABS: BARBITURATES, UR NEGATIVE (NEGATIVE); BENZODIAZEPINES, UR NEGATIVE (NEGATIVE); OPIATES, UR POSITIVE (NEGATIVE); PHENCYCLIDINE, UR NEGATIVE (NEGATIVE)
[2016-12-20 06:56] LABS: URINE BILIRUBIN NEGATIVE (NEGATIVE); URINE BLOOD NEGATIVE (NEGATIVE); URINE CLARITY SLIGHTY-CLOUDY (Clear); URINE COLOR YELLOW (YELLOW); URINE GLUCOSE (UA) NEG (Normal); URINE LEUKOCYTE ESTERASE NEG Leu/uL (Negative); URINE NITRATE NEGATIVE (NEGATIVE); URINE PROTEIN NEGATIVE (NEGATIVE); URINE UROBILINOGEN 0.2-1.0 mg/dL (0.2-1.0)
--- NOTE | 2016-12-20 07:41 | ED PDOC ---
- Laboratory Results Result Diagrams: 12/19/16 23:08 12/19/16 23:08 - ECG O2 Sat by Pulse Oximetry: 97 Medical Decision Making Medical Decision Making: received patient from Dr. Schultz. Patient pending transfer to psych bed at [facility]. Call received from Dr. Parra from [facility] ED to confirm patient' s willingness. Situation presented to patient and he agrees to be admitted at [facility] for psych care. Disposition - Clinical Impression Clinical Impression: Suicidal ideation - Disposition Condition: STABLE Forms: [facility] (Danish)
[2016-12-20 08:46] VITALS: RESP 20; O2SAT 98
[2016-12-20 09:28] VITALS: BP 120/71; PULSE 74; TEMP 98
--- NOTE | 2016-12-20 12:01 | CARD ---
APPROVED REPORT EKG Measurement Heart [id number] <Conclusion> Normal sinus rhythm Early repolarization Normal ECG
--- NOTE | 2016-12-22 06:00 | CARD ---
APPROVED REPORT EKG Measurement Heart [id number] <Conclusion> Normal sinus rhythm Possible Left atrial enlargement Borderline ECG
== END 2016-12-20 09:38 | disposition short-term general hospital (02) ==
LOC: H.ER 21:46
DX: R45.851 Suicidal ideations (principal)